=== PATIENT | female | born 1965 | race Caucasian/White ===

== ENCOUNTER 2017-07-27 09:32 | Observation (INO) | payer MEDICAID ==
[2017-07-27] MEDS ORDERED: NS 1,000 ML IV ONE (09:51)
[2017-07-27] MEDS ORDERED: ONDANSETRON 4 MG/2 ML VIAL IVP ONE (09:51)
--- NOTE | 2017-07-27 10:02 | EDPHY ---
H & P Smoking Status: Current every day smoker Time Seen by Provider: 07/27/17 09:47 HPI/ROS: CHIEF COMPLAINT: Abdominal pain HISTORY OF PRESENT ILLNESS: 52-year-old female presents to the emergency department by private vehicle complaining of lower abdominal pain and cramping. She states 1 month ago she was in [place] and was having some abdominal pain and had an ultrasound and was told that she had a "thickened lining ". The patient had what sounds like ablation and then was started on hormones. She has not had any problems or any bleeding until she stops the hormones this week and then started having vaginal bleeding on , 2 days ago. She is also having some dysuria. Denies urgency or frequency with urination. No fevers or chills. No back pain. No respiratory distress. REVIEW OF SYSTEMS: Constitutional: No fever, no chills. Eyes: No double or blurry vision. ENT: No sore throat. Respiratory: No cough, no shortness of breath. Cardiac: No chest pain. Gastrointestinal: Abdominal pain as above. Vomiting. No diarrhea. Genitourinary: No dysuria. Vaginal bleeding. Musculoskeletal: No neck or back pain. Skin: No rashes. Neurological: No headache. (Irina White) Past Medical/Surgical History: Seizure, emphysema, rheumatoid arthritis, (Irina White) Social History: Single (LakisharobinsonIrina M) Physical Exam: General Appearance: Alert, no distress. Afebrile. Eyes: Pupils equal and round. Extraocular motions are all intact. ENT: Mouth: Mucous membranes moist. Respiratory: No wheezing, rhonchi, or rales, lungs are clear to auscultation. Cardiovascular: Regular rate and rhythm. Gastrointestinal: Abdomen is soft. Tenderness with palpation especially in the right lower quadrant as well as slightly in the suprapubic area. There is no rebound, guarding or masses noted. No CVA tenderness bilaterally. Neurological: Alert and oriented x 3, cranial nerves II through XII grossly intact Genitourinary: Deferred Skin: Warm and dry, no rashes. Musculoskeletal: Nontender to palpate along the cervical, thoracic or lumbar spine. Neck is supple. Extremities: Full range of motion and no peripheral edema. Psychiatric: Patient is oriented X 3, there is no agitation. (Irina White) Constitutional: Initial Vital Signs Temperature (C) 36.5 C 07/27/17 09:39 Heart Rate 92 07/27/17 09:39 Respiratory Rate 17 07/27/17 09:39 Blood Pressure 151/116 H 07/27/17 09:39 O2 Sat (%) 98 07/27/17 09:39 O2 Delivery Mode Room Air Allergies/Adverse Reactions: aspirin Allergy (Verified 07/27/17 13:13) facial swelling Penicillins Allergy (Verified 07/27/17 13:13) facial swelling Home Medications: Medication Instructions Recorded Pantoprazole Sodium [Protonix 40mg 40 mg PO DAILY #30 tab 10/31/13 (*)] Cyclobenzaprine [Flexeril 10 MG 10 mg PO TID PRN 07/27/17 (*)] Ferrous Sulfate [Ferrous Sulf 325 325 mg PO DAILY PRN 07/27/17 MG (*)] Ibuprofen [Motrin (*)] 200 - 400 mg PO Q6H PRN 07/27/17 traMADol [Ultram 50 mg (*)] 50 mg PO BID PRN 07/27/17 Medical Decision Making ED Course/Re-evaluation: 52-year-old female presents to the emergency department with abdominal pain and vomiting. She last had pancake at 5:30 a.m. this morning. She has lower abdominal pain including right lower quadrant abdominal pain. No diarrhea. No back pain. She has felt fever campos chilled. Pelvic ultrasound was unremarkable. A limited abdominal ultrasound did not reveal the appendix. The patient continued to have ongoing abdominal pain. I was concerned about possible acute appendicitis. I discussed the pros and cons of CT imaging of her abdomen and pelvis including radiation exposure and the patient agrees with CT scan. CT imaging was positive for acute appendicitis with [address] Vicente Buenrostro. I spoke with the on-call general surgeon, Dr. Fox Vang, who will likely take this patient to the operating room this afternoon. The patient was kept NPO. Patient will be given Invanz IV. She continued to have ongoing pain. She did receive initially IV fentanyl and IV Dilaudid. Patient has listed aspirin and ibuprofen allergy. She states that she has had Ketoralac in a hospital in [place] in the past. She tolerated this well. The patient also has a penicillin allergy listed that included facial swelling. She is not sure the last time she had this. Elected to use Invanz. (CindyRobinaIrina M) I did not see this patient while she was in the emergency department. However her care was discussed with the PA while the patient was in the department. I agree with treatment plan and management (Evens Espinoza) Differential Diagnosis: Including but not limited to acute appendicitis, ovarian cyst, ovarian torsion, uterine carcinoma, urinary tract infection, pyelonephritis (CindyRobinaIrina M) - Data Points Laboratory Results: Laboratory Results 07/27/17 09:48 07/27/17 09:48 Medications Given: Hydrocodone Bitart/Acetaminophen (Napoleon 5/325) 1 - 2 tab PO Q4HRS PRN PRN Reason: Pain, Moderate Able to Take PO Stop: 08/06/17 15:02 Last Admin: 07/28/17 05:20 Dose: 1 tab Pantoprazole Sodium (Protonix) 40 mg PO DAILY NIKKI Stop: 01/24/18 08:59 Last Admin: 07/28/17 08:06 Dose: 40 mg Discontinued Medications Bupivacaine HCl/Epinephrine Bitart (Bupivacaine/Epi) Confirm Administered Dose 30 ml .ROUTE .STK-MED ONE Stop: 07/27/17 13:21 Last Admin: 07/27/17 14:18 Dose: 30 ml Fentanyl (Sublimaze) 25 - 100 mcg IVP Q5M PRN PRN Reason: PACU, IMMEDIATE Pain control Stop: 07/27/17 15:36 Last Admin: 07/27/17 14:49 Dose: 50 mcg Hydromorphone HCl (Dilaudid) 0.5 mg IVP EDNOW ONE Stop: 07/27/17 10:51 Last Admin: 07/27/17 10:51 Dose: 0.5 mg Hydromorphone HCl (Dilaudid) 0.5 mg IVP EDNOW ONE Stop: 07/27/17 13:15 Last Admin: 07/27/17 13:16 Dose: 0.5 mg Sodium Chloride (Ns) 1,000 mls @ 0 mls/hr IV ONCE ONE PRN Reason: Wide Open Stop: 07/27/17 09:52 Last Admin: 07/27/17 10:03 Dose: 1,000 mls Ertapenem 1 gm/ Sodium (Chloride) 100 mls @ 200 mls/hr IV EDNOW ONE PRN Reason: Protocol Stop: 07/27/17 13:24 Last Admin: 07/27/17 13:35 Dose: 100 mls Ketorolac Tromethamine (Toradol) 30 mg IVP EDNOW ONE Stop: 07/27/17 12:58 Last Admin: 07/27/17 12:58 Dose: 30 mg Ondansetron HCl (Zofran) 4 mg IVP EDNOW ONE Stop: 07/27/17 09:52 Last Admin: 07/27/17 10:03 Dose: 4 mg Oxycodone/Acetaminophen (Percocet 5/325) 1 - 2 tab PO Q4HRS PRN PRN Reason: PACU, Pain Severe Stop: 07/27/17 15:36 Last Admin: 07/27/17 15:19 Dose: 1 tab Promethazine HCl (Phenergan) 12.5 mg IVP EDNOW ONE Stop: 07/27/17 10:51 Last Admin: 07/27/17 10:52 Dose: 12.5 mg Departure - Departure Disposition: [facility] Acute Clinical Impression: Acute appendicitis Qualifiers: Acute appendicitis type: with localized peritonitis Qualified Code(s): K35.3 - Acute appendicitis with localized peritonitis Condition: Good
[2017-07-27 10:03] LABS: % IMMATURE GRANULYOCYTES 0.3 % (0.0-1.1); ABSOLUTE IMMATURE GRANULOCYTES 0.02 10^3/uL (0.00-0.10); ADD DIFF? NO; ADD MORPH? NO; ADD SCAN? NO; ATYPICAL LYMPHOCYTE FLAG 20 (0-99); FRAGMENT RBC FLAG 0 (0-99); HEMATOCRIT 41.8 % (38.0-47.0); HEMOGLOBIN 14.2 g/dL (12.6-16.3); LEFT SHIFT FLG 0 (0-99); LIPEMIA HEMOLYSIS FLAG 90 (0-99); MEAN CELL HEMOGLOBIN 31.3 pg (27.9-34.1); MEAN CELL VOLUME 92.3 fL (81.5-99.8); MEAN PLATELET VOLUME 10.4 fL (8.7-11.7); PLATELET CLUMPS FLAG 0 (0-99); PLATELET COUNT 273 10^3/uL (150-400); RED BLOOD CELL COUNT 4.53 10^6/uL (4.18-5.33); RED CELL DISTRIBUTION WIDTH 12.9 % (11.5-15.2)
[2017-07-27 10:18] LABS: ANION GAP 13 mEq/L (8-16); CALCIUM 9.5 mg/dL (8.5-10.4); CARBON DIOXIDE 24 mEq/l (22-31); CHLORIDE 106 mEq/L (97-110); CREATININE 0.8 mg/dL (0.6-1.0); GLOMERULAR FILTRATION RATE > 60; GLUCOSE 102 mg/dL (70-100); POTASSIUM 4.3 mEq/L (3.5-5.2); SODIUM 143 mEq/L (134-144)
[2017-07-27 10:29] LABS: COLOR RED
[2017-07-27 10:33] LABS: RBC,URINE >182 /hpf (0-3)
[2017-07-27 10:34] LABS: MUCUS TRACE /lpf (NONE-1+)
[2017-07-27] MEDS ORDERED: PROMETHAZINE HCL 25 MG/ML INJ ONE (10:49)
[2017-07-27] MEDS ORDERED: HYDROmorphONE/DILAUDID 1 MG/ML INJ ONE (10:49)
[2017-07-27] MEDS ORDERED: PROMETHAZINE HCL 25 MG/ML INJ IVP ONE (10:50)
[2017-07-27] MEDS ORDERED: HYDROmorphONE/DILAUDID 1 MG/ML INJ IVP ONE ×2 (10:50→13:14)
[2017-07-27] MEDS ORDERED: IOPAMIDOL (ISOVUE-300) 100 ML BTL ONE ×2 (11:59→12:07)
[2017-07-27] MEDS ORDERED: ERTAPENEM 1 GM in NS 100 ML IV ONE (12:55)
[2017-07-27] MEDS ORDERED: KETOROLAC 30 MG/1 ML SDV ONE (12:56)
[2017-07-27] MEDS ORDERED: KETOROLAC 30 MG/1 ML SDV IVP ONE (12:57)
[2017-07-27] MEDS ORDERED: BUPIVACAINE/EPI 0.5% 30 ML SDV ONE (13:20)
--- NOTE | 2017-07-27 13:44 | POSTOPPROG ---
Post Op Note Date of Operation: 07/27/17 Surgeon: Fox Vang Anesthesiologist: Hector Ferguson MD Anesthesia: GET(General Endotracheal) Pre-op Diagnosis: Acute appendicitis Post-op Diagnosis: Same Procedure: Lap Appy Findings: early appendicitis Inf/Abcess present in the surg proc area at time of surgery?: Yes Depth: Organ Space EBL: Minimal Complications: no immediate Specimen(s): appendix
--- NOTE | 2017-07-27 13:44 | PDANEPAE ---
ANE Past Medical History - Cardiovascular History Hx Hypertension: Yes - Pulmonary History Hx COPD: Yes Hx Oxygen in Use at Home: No Hx Sleep Apnea: No - Endocrine History Hx Diabetes: No ANE Review of Systems Review of Systems: ANE Patient History - Allergies Allergies/Adverse Reactions: aspirin Allergy (Verified 07/27/17 13:13) facial swelling Penicillins Allergy (Verified 07/27/17 13:13) facial swelling - Home Medications Home Medications: Cyclobenzaprine [Flexeril 10 MG (*)] 10 mg PO TID PRN 07/27/17 [Last Taken Unknown] Ferrous Sulfate [Ferrous Sulf 325 MG (*)] 325 mg PO DAILY PRN 07/27/17 [Last Taken Unknown] Ibuprofen [Motrin (*)] 200 - 400 mg PO Q6H PRN 07/27/17 [Last Taken Unknown] traMADol [Ultram 50 mg (*)] 50 mg PO BID PRN 07/27/17 [Last Taken Unknown] - NPO status NPO Since - Liquids (Date): 07/27/17 NPO Since - Liquids (Time): 05:00 NPO Since - Solids (Date): 07/27/17 NPO Since - Solids (Time): 05:00 - Smoking Hx Smoking Status: Current every day smoker ANE Labs/Vital Signs - Labs Result Diagrams: 07/27/17 09:48 07/27/17 09:48 - Vital Signs Blood Pressure: 145/83 Heart Rate: 78 Respiratory Rate: 14 O2 Sat (%): 100 Height: 172.72 cm Weight: 81.647 kg ANE Physical Exam - Airway Mallampati Score: Class 2 Mouth exam: dentures - ASA Status ASA Status: III, E ANE Anesthesia Plan Anesthesia Plan: general endotracheal anesthesia
[2017-07-27] MEDS ORDERED: PROPOFOL 200 MG/20 ML VIAL ONE (13:47)
[2017-07-27] MEDS ORDERED: fentaNYL 100 MCG/2 ML INJ ONE ×2 (13:47→14:46)
[2017-07-27] MEDS ORDERED: MIDAZOLAM 2 MG/2 ML VIAL ONE (13:47)
[2017-07-27] MEDS ORDERED: ROCURONIUM 50 MG/5 ML VIAL ONE (14:10)
[2017-07-27] MEDS ORDERED: METOCLOPRAMIDE 10 MG/2 ML VIAL ONE (14:10)
[2017-07-27] MEDS ORDERED: METOPROLOL TARTRATE 5 MG/5 ML INJ ONE (14:10)
[2017-07-27] MEDS ORDERED: ONDANSETRON 4 MG/2 ML VIAL ONE (14:10)
--- NOTE | 2017-07-27 14:16 | GHP ---
[f rep st] PREOP HISTORY AND PHYSICAL DATE OF ADMISSION: 07/27/2017 REASON FOR EVALUATION: Appendicitis. REQUESTED BY: Irina White. HISTORY OF PRESENT ILLNESS: 52-year-old female presents to the emergency room with a 2-day history of progressive right lower quadrant abdominal pain. She describes associated nausea without vomiting. She describes a history of recent constipation. No recent diarrhea. The pain has been worsening for which she presented for further workup today. No prior history of similar complaints. No prior colonoscopy. No voiding complaints. She did undergo a recent endometrial ablation for which she has had bleeding and pelvic pain. These pains are completely unrelated to her prior symptoms. PAST MEDICAL HISTORY: Seizure disorder. No activity for many years. Emphysema. No home oxygen. Rheumatoid arthritis. No secondary complications. PAST SURGICAL HISTORY: , facial trauma repair. MEDICATIONS: Protonix, Zoloft. ALLERGIES: Aspirin, ibuprofen (facial swelling), penicillin. SOCIAL HISTORY: No alcohol. No tobacco. She is accompanied by her boyfriend. FAMILY HISTORY: Noncontributory. REVIEW OF SYSTEMS: Notable for recent above GI and CLASSIFICATION CASE MANAGER complaints. Otherwise, unremarkable 12-point review of systems. PHYSICAL EXAM: VITAL SIGNS: Afebrile, temperature 36.5, blood pressure initial 150/100, heart rate 90, respirations 17. GENERAL: The patient is alert , appropriate, uncomfortable. HEENT/NECK: Anicteric. No cervical lymphadenopathy. HEART: Regular without murmurs. LUNGS: Clear bilaterally. ABDOMEN: Mildly distended. Notable right lower quadrant tenderness with mild guarding. No abdominal hernias. EXTREMITIES: Unremarkable. NEUROLOGIC: Alert and appropriate x3. SKIN: Normal. EXTREMITIES: Without edema. LAB: White count 6. Urinalysis normal. Electrolytes and liver enzymes within reference range. IMAGING: CT scan images directly reviewed, PACS, and with radiologist. Multiple appendicolith. 10 mm appendix, greatest diameter with small periappendiceal inflammatory change. IMPRESSION: Early appendicitis. PLAN: Laparoscopic appendectomy. Risks and benefits were explained of bleeding , infection, open conversion, as well as alternative diagnoses. All questions were answered. She desires to proceed. /[id number]/MODL MTDD
[2017-07-27] MEDS ORDERED: SUGAMMADEX SODIUM 200 MG/2 ML VIAL IVP ONE (14:19)
[2017-07-27] MEDS ORDERED: LR 500 ML IV PRN (14:36)
[2017-07-27] MEDS ORDERED: MEPERIDINE 25 MG/ML SYR IVP PRN (14:36)
[2017-07-27] MEDS ORDERED: DEXAMETHASONE 4 MG/ML VIAL IVP PRN (14:36)
[2017-07-27] MEDS ORDERED: ALBUTEROL 3 ML DEYVIAL IH PRN (14:36)
[2017-07-27] MEDS ORDERED: PROMETHAZINE HCL 25 MG/ML INJ IVP PRN (14:36)
[2017-07-27] MEDS ORDERED: OXYCODONE/APAP 5/325 TAB PO PRN (14:36)
[2017-07-27] MEDS ORDERED: fentaNYL 100 MCG/2 ML INJ IVP PRN (14:36)
[2017-07-27] MEDS ORDERED: NALOXONE HCL 0.4 MG/ML INJ IVP PRN (14:36)
--- NOTE | 2017-07-27 14:37 | POSTANESTH ---
Post Anesthetic Evaluation Cardiovascular Status: Normal, Stable Respiratory Status: Similar to Pre-op Cond. Level of Consciousness/Mental Status: Can Participate in Eval Pain Control: Adequate, Prn Tx Ordered Nausea/Vomiting Control: Adequate, Prn Tx Ordered Complications Possibly Related to Anesthesia: None Noted
--- NOTE | 2017-07-27 15:01 | GOP ---
[f rep st] OPERATIVE REPORT DATE OF OPERATION: SURGEON: Fox Vang MD ANESTHESIA: General, Dr. Ferguson. PREOPERATIVE DIAGNOSIS: Acute appendicitis. POSTOPERATIVE DIAGNOSIS: Acute appendicitis. PROCEDURE PERFORMED: Laparoscopic appendectomy. FINDINGS: Dilated, stiff, injected appendix INDICATIONS: 52-year-old female with a 2-day history of progressive right lower quadrant abdominal pain. Workup and imaging findings concerning for early appendicitis. She is undergoing a laparoscopic appendectomy at this time. Risks and benefits were explained of bleeding, infection, open conversion, as well as alternative diagnoses. All questions were answered. She desires to proceed. DESCRIPTION OF PROCEDURE: After general anesthesia was induced. The abdomen was pre-injected with 0.5% Marcaine with epinephrine. A vertical infraumbilical cutdown was created. A 10 mm trocar was placed under direct visualization. The abdomen was insufflated to 15 mmHg. 2 additional 5 mm lower midline ports were inserted. The appendix was firm with areas of hemorrhagic change. No suppuration or perforation was identified. The mesoappendix was divided with a Harmonic Scalpel. The base was transected flush with the cecum with an endoscopic MARIBEL stapler. The specimen was brought through the umbilical port site intact using EndoCatch pouch. Satisfactory hemostasis was assured. Trocars were removed under direct visualization. The infraumbilical midline fascia was closed with running Vicryl suture. The wounds were closed with absorbable suture followed by Dermabond. The patient was taken to recovery uneventfully. /[id number]/MODL MTDD
[2017-07-27] MEDS ORDERED: HYDROmorphONE/DILAUDID 1 MG/ML INJ IVP PRN (15:03)
[2017-07-27] MEDS ORDERED: ZOLPIDEM TARTRATE 5 MG TAB PO PRN (15:03)
[2017-07-27] MEDS ORDERED: ACETAMINOPHEN 325 MG TAB PO PRN (15:03)
[2017-07-27] MEDS ORDERED: ONDANSETRON 4 MG/2 ML VIAL IVP PRN (15:03)
[2017-07-27] MEDS ORDERED: oxyCODONE IR 5 MG TAB ONE (15:12)
[2017-07-27] MEDS ORDERED: traMADol 50 MG TAB PO PRN (15:15)
[2017-07-27] MEDS ORDERED: CYCLOBENZAPRINE 10 MG TAB PO PRN (15:15)
[2017-07-27] MEDS ORDERED: FERROUS SULFATE 325 MG TAB PO PRN (15:15)
[2017-07-27] MEDS ORDERED: OXYCODONE/APAP 5/325 TAB ONE (15:19)
[2017-07-27] MEDS: HYDROCODONE/APAP 5/325 TAB PO PRN ×2 (18:47→23:37)
[2017-07-27] MEDS ORDERED: HYDROmorphONE/DILAUDID 2 MG/ML INJ IVP PRN (23:30)
[2017-07-28] MEDS: HYDROCODONE/APAP 5/325 TAB PO PRN (05:20)
--- NOTE | 2017-07-28 07:42 | SOAPPROG ---
SOAP Progress Note Assessment/Plan: Assessment:no complaints. min pain. no nausea or vomiting. 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 avss. comfortable. abd soft, min approp tenderness. incis clean. doing well. dc today. living in car - has a friend she can stay with. will see back in 2 weeks. full dc instructions explained. Plan: 07/28/17 07:40 Objective: Vital Signs Temp Pulse Resp BP Pulse Ox 36.8 C 73 16 146/89 H 95 07/28/17 03:53 07/28/17 03:53 07/28/17 03:53 07/28/17 03:53 07/28/17 03:53 07/27/17 07/28/17 07/29/17 05:59 05:59 05:59 Intake Total 3390 Output Total 5 Balance 3385 ICD10 Worksheet Patient Problems: Problems Problem Status Onset Acute appendicitis Acute
[2017-07-28 08:10] VITALS: BP 169/97; PULSE 75; RESP 14; TEMP 97.6; O2SAT 98
[2017-07-28] MEDS ORDERED: PANTOPRAZOLE SODIUM 40 MG TAB PO SCH (09:00)
--- NOTE | 2017-07-29 16:12 | ASDISCHSUM ---
Discharge Information Plan Status:Home with No Needs Medically Cleared to Leave:07/28/2017 Discharge Date:07/28/2017 09:05 AM CM D/C Disposition:Home, Routine, Self-Care ADT D/C Disposition:Home, Routine, Self-Care Projected Discharge Date:07/28/2017 12:00 AM Transportation at D/C: Discharge Delay Reason: Follow-Up Date:07/28/2017 12:00 AM Discharge Slot: Final Diagnosis: Placement Information Patient Contact Information Contact Name:AQUILES Relationship:Mother Address: Work Phone: [place] Alternate Phone: [facility]/Zip Code:[place] Email: Financial Information Financial Class:MD Primary Plan Desc:[employer]PERATIONS/DISPATCH Primary Plan Number:[id number] Secondary Plan Desc: Secondary Plan Number: Assessment Information Intervention Information
== END 2017-07-28 09:05 | disposition home or self-care (01) ==
LOC: F3E 15:41
PROVIDERS: ADMIT Surgery; ATTEND Surgery
PROC: 0DTJ4ZZ Resection of Appendix, Percutaneous Endoscopic Approach (ICD-10-PCS; principal; 2017-07-27 13:30)
DX: K35.80 Unspecified acute appendicitis (principal); M06.9 Rheumatoid arthritis, unspecified; J43.9 Emphysema, unspecified; Z88.0 Allergy status to penicillin
CPT/HCPCS: 44970; 74177; 76705; 76856; G0378; 96374; J1170; J1335; J1885; J2250; J2405; J2550; J2704; J2765; J3010; Q9967

== ENCOUNTER → 2019-01-21 | Outpatient (CLI) | payer MEDICAID | LOC: FIMAGING 13:58 | PROVIDERS: ATTEND Family Medicine | DX: Z12.31 Encounter for screening mammogram for malignant neoplasm of breast (principal) ==

== ENCOUNTER 2019-04-03 17:23 | Emergency (ER) | payer MEDICAID | END 2019-04-03 19:20 | disposition home or self-care (01) ==